=== PATIENT | male | born 1960 | race Caucasian/White ===

== ENCOUNTER 2018-04-14 16:55 | Emergency (ER) | payer SELFPAY ==
[2018-04-14] MEDS ORDERED: ONDANSETRON HCL INJ/PF 4 MG/2 ML SDV IV ONE ×2 (17:18→18:46)
[2018-04-14] MEDS ORDERED: MORPHINE SULFATE 10 MG/ML INJ IV ONE ×2 (17:18→18:46)
[2018-04-14] MEDS ORDERED: NORMAL SALINE 1000 ML 1,000 ML IV ONE (17:19)
--- NOTE | 2018-04-14 17:23 | ER Document Report ---
ED General - General Chief Complaint: Flank Pain Stated Complaint: RIGHT FLANK PAIN, VOMITING Time Seen by Provider: 04/14/18 17:14 TRAVEL OUTSIDE OF THE [place] IN LAST 30 DAYS: No - HPI Notes: Patient is a 57-year-old male that presents to the emergency department for chief complaint of right flank pain. Patient had acute onset of right flank pain 3 hours ago. It is located mostly in his back and radiates around to his right lower quadrant. There is no aggravating or relieving factor to his pain. He did take ibuprofen about 3 hours ago with no change in symptoms. He has associated nausea and vomiting. He denies any diarrhea fevers or chills. He does have a history of kidney stones in the past and states they were always on the left side and associated with dysuria. He denies any dysuria currently. Past Medical History: History of kidney stones, chronic back pain Past Surgical History: Negative Social History: Denies drugs alcohol and tobacco Family History: Reviewed and noncontributory for presenting illness Allergies: Reviewed, see documented allergy list. REVIEW OF SYSTEMS: CONSTITUTIONAL : No fever No chills No diaphoresis No recent illness EENT: No vision changes No congestion No sore throat CARDIOVASCULAR: No chest pain No palpitations RESPIRATORY: No shortness of breath No cough No difficulty breathing GASTROINTESTINAL: abdominal pain Right flank pain nausea vomiting No diarrhea GENITOURINARY: No dysuria No hematuria No difficulty urinating MUSCULOSKELETAL: No back pain No leg pain No arm pain SKIN: No rashes No lesions LYMPHATIC: No swollen, enlarged glands. NEUROLOGICAL: No lightheadedness No headache No weakness No paresthesias PSYCHIATRIC: No anxiety No depression PHYSICAL EXAMINATION: Vital signs reviewed, nursing noted reviewed. GENERAL: Well-appearing, well-nourished and in no acute distress. HEAD: Atraumatic, normocephalic. EYES: Eyes appear normal, extraocular movements intact, sclera anicteric, conjunctiva are normal. ENT: nares patent, oropharynx clear without exudates. Moist mucous membranes. NECK: Normal range of motion, supple without lymphadenopathy LUNGS: Breath sounds clear to auscultation bilaterally and equal. No wheezes rales or rhonchi. HEART: Regular rate and rhythm without murmurs ABDOMEN: Right CVA tenderness. Soft, nontender, normoactive bowel sounds. No rebound, guarding, or rigidity. No masses appreciated. EXTREMITIES: Nontender, good range of motion, no pitting or edema. NEUROLOGICAL: No focal neurological deficits. Moves all extremities spontaneously Motor and sensory grossly intact on exam. PSYCH: Normal mood, normal affect. SKIN: Warm, Dry, normal turgor, no rashes or lesions noted on exposed skin - Related Data Allergies/Adverse Reactions: No Known Allergies Allergy (Verified 04/14/18 16:56) Past Medical History - Social History Smoking Status: Never Smoker Frequency of alcohol use: None Drug Abuse: None Family History: Reviewed & Not Pertinent Patient has suicidal ideation: No Patient has homicidal ideation: No Renal/ Medical History: Reports: Hx Kidney Stones. Denies: Hx Peritoneal Dialysis - Immunizations Immunizations up to date: No Hx Diphtheria, Pertussis, Tetanus Vaccination: Yes Review of Systems - Review of Systems Notes: Dictated Physical Exam - Vital signs Vitals: Temp Pulse Resp BP Pulse Ox 97.4 F 82 16 136/93 H 100 04/14/18 17:00 04/14/18 17:00 04/14/18 17:00 04/14/18 17:00 04/14/18 17:00 - Notes Notes: Dictated Course - Re-evaluation Re-evalutation: 04/14/18 17:21 Vitals reviewed. Nursing notes reviewed. Patient given IV hydration, Zofran and morphine for symptomatic management. 04/14/18 18:46 Patient reevaluated and has had symptomatic improvement. He appears much more comfortable than during my initial evaluation. He has an 8 mm obstructing right ureterolithiasis with hydronephrosis. Patient's renal function is normal. He has no electrolyte derangements. He is tolerating oral intake. There is no superimposed urinary tract infection. Patient will be given another dose of pain medication. He will be discharged home with Flomax, Ionia , naproxen and Zofran. He will be referred to urology for follow-up. Patient will return for new or worsening symptoms. He is stable at discharge. Laboratory 04/14/18 04/14/18 04/14/18 17:26 17:26 17:50 WBC 7.7 RBC 5.07 Hgb 15.4 Hct 43.5 MCV 86 MCH 30.3 MCHC 35.3 RDW 13.2 Plt Count 217 Seg Neutrophils % 84.0 H Lymphocytes % 8.5 L Monocytes % 6.4 Eosinophils % 0.5 Basophils % 0.6 Absolute Neutrophils 6.4 Absolute Lymphocytes 0.7 Absolute Monocytes 0.5 Absolute Eosinophils 0.0 Absolute Basophils 0.0 Sodium 141.0 Potassium 4.2 Chloride 98 Carbon Dioxide 31 H Anion Gap 12 BUN 19 Creatinine 1.06 Est GFR ( Amer) > 60 Est GFR (Non-Af Amer) > 60 Glucose 124 H Calcium 9.7 Urine Color YELLOW Urine Appearance SLIGHTLY-CLOUDY Urine pH 7.0 Ur Specific Turton 1.020 Urine Protein 30 H Urine Glucose (UA) NEGATIVE Urine Ketones NEGATIVE Urine Blood LARGE H Urine Nitrite NEGATIVE Urine Bilirubin NEGATIVE Urine Urobilinogen NEGATIVE Ur Leukocyte Esterase NEGATIVE Urine WBC (Auto) 1 Urine RBC (Auto) >182 U Hyaline Cast (Auto) 3 Urine Bacteria (Auto) TRACE Urine Mucus (Auto) OCC Urine Ascorbic Acid NEGATIVE Abdomen/Pelvis CT 04/14/18 17:19 IMPRESSION: 1. Right hydronephrosis secondary to an 8 mm UPJ stone. 2. Small nonobstructing intrarenal calculi on the left. 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 Please return to the emergency department if you develop chest pain, difficulty breathing, severe abdominal pain, or ongoing vomiting. Please follow-up with your primary care physician in 2-3 days and any other recommended physicians. If prescribed, take all medications as directed. If you have any questions or concerns do not hesitate to return the emergency department for evaluation. [] Prescriptions: Hydrocodone/Acetaminophen [Ionia 5-325 mg Tablet] 1 tab PO Q6 PRN #12 tablet PRN Reason: pain Naproxen 500 mg PO BID PRN #30 tablet PRN Reason: Pain Scale Of 1 Ondansetron [Zofran Odt 4 mg Tablet] 1 tab PO Q4H PRN #15 tab.rapdis PRN Reason: For Nausea/Vomiting Tamsulosin HCl [Flomax 0.4 mg Cap.sr] 0.4 mg PO DAILY #10 cap.sr.24h Referrals: [facility] [Provider Group] - Follow up in 3-5 days
[2018-04-14 17:46] LABS: ABSOLUTE LYMPHOCYTES (AUTO) 0.7 10^3/uL (0.5-4.7); ABSOLUTE MONOCYTES (AUTO) 0.5 10^3/uL (0.1-1.4); ABSOLUTE NEUT (AUTO) 6.4 10^3/uL (1.7-8.2); BASOPHILS % (AUTO) 0.6 % (0-2); EOSINOPHILS % (AUTO) 0.5 % (0-6); HEMATOCRIT 43.5 % (37.9-51.0); HEMOGLOBIN 15.4 g/dL (13.5-17.0); LYMPHOCYTES % (AUTO) 8.5 % (13-45); MEAN CORPUSCULAR HEMOGLOBIN 30.3 pg (27.0-33.4); MEAN CORPUSCULAR HGB CONC 35.3 g/dL (32.0-36.0); MEAN CORPUSCULAR VOLUME 86 fl (80-97); MONOCYTES % (AUTO) 6.4 % (3-13); PLATELET COUNT 217 10^3/uL (150-450); RED BLOOD COUNT 5.07 10^6/uL (4.35-5.55); RED CELL DISTRIBUTION WIDTH 13.2 % (11.5-14.0); TOTAL CELLS COUNTED % (AUTO) 100 %; WHITE BLOOD COUNT 7.7 10^3/uL (4.0-10.5)
[2018-04-14 18:09] LABS: ANION GAP 12 (5-19); BLOOD UREA NITROGEN 19 mg/dL (7-20); CALCIUM 9.7 mg/dL (8.4-10.2); CARBON DIOXIDE 31 mmol/L (22-30); CHLORIDE 98 mmol/L (98-107); GLUCOSE 124 mg/dL (75-110); POTASSIUM 4.2 mmol/L (3.6-5.0)
--- NOTE | 2018-04-14 18:09 | RADIOLOGY REPORT (SQ) ---
EXAM DESCRIPTION: CT ABD/PELVIS NO ORAL OR IV COMPLETED DATE/TIME: 04/14/2018 5:41 pm REASON FOR STUDY: right flank pain COMPARISON: Renal stone CT 01/11/2011 TECHNIQUE: CT scan of the abdomen and pelvis performed without intravenous or oral contrast. Images reviewed with lung, soft tissue, and bone windows. Reconstructed coronal and sagittal MPR images revi ewed. All images stored on PACS. All CT scanners at this facility use dose modulation, iterative reconstruction, and/or weight based d osing when appropriate to reduce radiation dose to as low as reasonably achievable (ALARA). [facility]: Dose Right [facility]: CareDose [facility]: Dose Right [facility]: Teradose 4D [facility]: [employer] RADIATION DOSE: CT Rad equipment meets quality standard of care and radiation dose reduction techniq ues were employed. CTDIvol: 11.7 mGy. DLP: 652 mGy-cm.mGy. LIMITATIONS: None. FINDINGS: LOWER CHEST: No significant findings. No nodules or infiltrates. NON-CONTRASTED LIVER, SPLEEN, ADRENALS: Evaluation limited by lack of IV contrast. No identified sign ificant masses. PANCREAS: No masses. No peripancreatic inflammatory changes. GALLBLADDER: No identified stones by CT criteria. No inflammatory changes to suggest cholecystitis. RIGHT KIDNEY AND URETER: No suspicious masses. Assessment limited by lack of IV contrast. 8 mm calc ulus at the UPJ. Hydronephrosis. LEFT KIDNEY AND URETER: No suspicious masses. Assessment limited by lack of IV contrast. A couple o f nonobstructing intrarenal calculi are present. No hydronephrosis or hydroureter. AORTA AND RETROPERITONEUM: No aneurysm. No retroperitoneal masses or adenopathy. BOWEL AND PERITONEAL CAVITY: Mild diverticulosis. No acute inflammation. No obvious bowel mass. APPENDIX: Normal. PELVIS, BLADDER, AND ABDOMINAL WALL:No abnormal masses. No free fluid. Bladder normal. BONES: No significant findings. OTHER: No other significant finding. IMPRESSION: 1. Right hydronephrosis secondary to an 8 mm UPJ stone. 2. Small nonobstructing intrarenal calculi on the left. COMMENT: Quality ID # [id number]: Final reports with documentation of one or more dose reduction techniques (e.g., Automated exposure control, adjustment of the mA and/or kV according to patient size, use of iterative reconstruction technique) TECHNICAL DOCUMENTATION: JOB ID: [id number] [employer]- All Rights Reserved Reading location - IP/workstation name: [email or web address]
[2018-04-14] MEDS ORDERED: TAMSULOSIN HCL 0.4 MG CAP.SR.24H PO ONE (18:13)
[2018-04-14 18:28] LABS: APPEARANCE,URINE SLIGHTLY-CLOUDY; BILIRUBIN,URINE NEGATIVE (NEGATIVE); COLOR,URINE YELLOW; GLUCOSE, URINE NEGATIVE (NEGATIVE); KETONES,URINE NEGATIVE (NEGATIVE); LEUKOCYTE ESTERASE,URINE NEGATIVE (NEGATIVE); NITRITE,URINE NEGATIVE (NEGATIVE); PROTEIN,URINE 30 mg/dL (NEGATIVE); UROBILINOGEN,URINE NEGATIVE mg/dL (<2.0)
[2018-04-14] MEDS ORDERED: KETOROLAC TROMETHAMINE INJ/PF 30 MG/1 ML SDV IV ONE (18:46)
[2018-04-14 19:30] VITALS: BP 148/84
== END 2018-04-14 19:18 | disposition home or self-care (01) ==
LOC: ER 16:55
DX: N13.2 Hydronephrosis with renal and ureteral calculous obstruction (principal); Q62.11 Congenital occlusion of ureteropelvic junction; R11.2 Nausea with vomiting, unspecified
CPT/HCPCS: 96376; 99284; 96361; 96374; 96375; 36415; 85025; 80048; 81001; 74176; J1885; J2270; J2405; J7030

== ENCOUNTER 2019-01-29 17:28 | Emergency (ER) | payer SELFPAY ==
[2019-01-29] MEDS ORDERED: DIPH/PERTUSS(ACELL)/TETANUS VAC/PF 0.5 ML SYR (>=10YO) IM ONE (19:33)
--- NOTE | 2019-01-29 19:36 | ER Document Report ---
ED Medical Screen (RME) - General Chief Complaint: Laceration Stated Complaint: LEFT ARM INJURY Time Seen by Provider: 01/29/19 19:32 Mode of Arrival: Ambulatory Information source: Patient Notes: 58-year-old male presented to ED for complaint of laceration to the left antecubital space. He states he was hitting one hammer with another hemorrhoid get a nail out and he does not know what he cut himself on or if it was a piece of chip from the nail or the hammer. He does have a small laceration to the antecubital space. He does not know when his last tetanus was. He has been ordered a x-ray and a tetanus shot. States his only medical history of kidney stones and lithotripsies. He does not smoke drink or drugs lives with his and he is a commercial announcer. Patient is alert oriented respirations regular and unlabored speaking in full sentences. I have greeted and performed a rapid initial assessment of this patient. A comprehensive ED assessment and evaluation of the patient, analysis of test results and completion of medical decision making process will be conducted by an additional ED providers. TRAVEL OUTSIDE OF THE [place] IN LAST 30 DAYS: No - Related Data Allergies/Adverse Reactions: No Known Allergies Allergy (Verified 04/14/18 16:56) Past Medical History - Social History Frequency of alcohol use: None Drug Abuse: None Renal/ Medical History: Reports: Hx Kidney Stones. Denies: Hx Peritoneal Dialysis - Immunizations Immunizations up to date: No Hx Diphtheria, Pertussis, Tetanus Vaccination: Yes Physical Exam - Vital signs Vitals: Temp Pulse Resp BP Pulse Ox 98.6 F 117 H 18 134/98 H 93 01/29/19 17:35 01/29/19 17:35 01/29/19 17:35 01/29/19 17:35 01/29/19 17:35 Course - Vital Signs Vital signs: Temp Pulse Resp BP Pulse Ox 98.2 F 101 H 16 139/97 H 98 01/29/19 19:26 01/29/19 19:26 01/29/19 19:26 01/29/19 19:26 01/29/19 19:26
--- NOTE | 2019-01-29 21:14 | RADIOLOGY REPORT (SQ) ---
EXAM DESCRIPTION: XR ELBOW 3 VIEWS COMPLETED DATE/TME: 01/29/2019 19:33 CLINICAL HISTORY: 58 years, Male, possible foreign body laceration COMPARISON: None. NUMBER OF VIEWS: Four TECHNIQUE: Frontal, oblique, and lateral radiographs of the left elbow were obtained. LIMITATIONS: None. FINDINGS: A retained radiopaque foreign body is evident about the soft tissues along the medial aspect of the distal upper arm near the level of the medial epicondyle. Otherwise, visualized osseous structures appear normal without acute fracture or dislocation. No significant elbow joint effusion. IMPRESSION: No acute osseous anomaly. Retained radiopaque foreign body located within the soft tissues along the medial aspect of the distal upper arm near the level of the medial epicondyle. copyright 2010 [employer]- All Rights Reserved
--- NOTE | 2019-01-30 00:02 | ER Document Report ---
ED Wound - General Chief Complaint: Laceration Stated Complaint: LEFT ARM INJURY Time Seen by Provider: 01/29/19 19:32 Mode of Arrival: Ambulatory TRAVEL OUTSIDE OF THE [place] IN LAST 30 DAYS: No - Related Data Allergies/Adverse Reactions: No Known Allergies Allergy (Verified 04/14/18 16:56) Past Medical History - General Information source: Patient - Social History Smoking Status: Never Smoker Frequency of alcohol use: None Drug Abuse: None Family History: Reviewed & Not Pertinent Patient has suicidal ideation: No Patient has homicidal ideation: No Renal/ Medical History: Reports: Hx Kidney Stones. Denies: Hx Peritoneal Dialysis - Immunizations Immunizations up to date: No Hx Diphtheria, Pertussis, Tetanus Vaccination: Yes Physical Exam - Vital signs Vitals: Temp Pulse Resp BP Pulse Ox 98.6 F 117 H 18 134/98 H 93 01/29/19 17:35 01/29/19 17:35 01/29/19 17:35 01/29/19 17:35 01/29/19 17:35 Course - Vital Signs Vital signs: Temp Pulse Resp BP Pulse Ox 98.2 F 101 H 16 139/97 H 98 01/29/19 19:26 01/29/19 19:26 01/29/19 19:26 01/29/19 19:26 01/29/19 19:26 Discharge - Discharge Clinical Impression: Laceration of left elbow with foreign body Qualifiers: Encounter type: initial encounter Qualified Code(s): S51.022A - Laceration with foreign body of left elbow, initial encounter Condition: Good Disposition: HOME, SELF-CARE Instructions: Laceration Care ([facility]), Tetanus Immunization Given ([facility]) Additional Instructions: Follow-up with PCP in 1 to 2 days. Return for any worsening symptoms. tylenol as needed for any pain or fever if not allergic. take the medication as prescribed. Cool compresses to the area. Monitor for any signs of infection as discussed. Prescriptions: Ciprofloxacin HCl [Cipro 500 mg Tablet] 500 mg PO BID #14 tablet
[2019-01-30] MEDS ORDERED: LIDOCAINE 1% INJ-PF (10 MG/ML) 30 ML SDV ONE (00:39)
[2019-01-30 01:42] VITALS: BP 116/88
== END 2019-01-30 01:42 | disposition home or self-care (01) ==
LOC: ER 17:28
DX: S51.022A Laceration with foreign body of left elbow, initial encounter (principal); W45.8XXA Other foreign body or object entering through skin, initial encounter; Y93.89 Activity, other specified
CPT/HCPCS: 90471; 90715; 99283

== ENCOUNTER 2020-04-01 21:55 | Observation (INO) | payer OTHER ==
[2020-04-01 22:36] LABS: ABSOLUTE BASOPHILS # (AUTO) 0.1 10^3/uL (0.0-0.2); ABSOLUTE EOSINOPHILS # (AUTO) 0.2 10^3/uL (0.0-0.6); ABSOLUTE LYMPHOCYTES (AUTO) 1.5 10^3/uL (0.5-4.7); ABSOLUTE MONOCYTES (AUTO) 0.8 10^3/uL (0.1-1.4); ABSOLUTE NEUT (AUTO) 4.5 10^3/uL (1.7-8.2); BASOPHILS % (AUTO) 1.5 % (0-2); EOSINOPHILS % (AUTO) 2.7 % (0-6); HEMATOCRIT 46.4 % (37.9-51.0); HEMOGLOBIN 16.3 g/dL (13.5-17.0); LYMPHOCYTES % (AUTO) 20.9 % (13-45); MEAN CORPUSCULAR HEMOGLOBIN 30.3 pg (27.0-33.4); MEAN CORPUSCULAR HGB CONC 35.2 g/dL (32.0-36.0); MEAN CORPUSCULAR VOLUME 86 fl (80-97); MONOCYTES % (AUTO) 11.7 % (3-13); PLATELET COUNT 196 10^3/uL (150-450); RED BLOOD COUNT 5.38 10^6/uL (4.35-5.55); RED CELL DISTRIBUTION WIDTH 13.8 % (11.5-14.0); SEGMENTED NEUTROPHILS % (AUTO) 63.2 % (42-78); TOTAL CELLS COUNTED % (AUTO) 100 %; WHITE BLOOD COUNT 7.1 10^3/uL (4.0-10.5)
[2020-04-01 22:43] LABS: PARTIAL THROMBOPLASTIN TIME 34.6 SEC (23.5-35.8)
[2020-04-01 22:49] LABS: INTERNATIONAL RATION (INR) 0.93; PROTHROMBIN TIME 12.7 SEC (11.4-15.4)
--- NOTE | 2020-04-01 22:56 | RADIOLOGY REPORT (SQ) ---
EXAM DESCRIPTION: XR CHEST 1 VIEW COMPLETED DATE/TME: 04/01/2020 00:00 CLINICAL HISTORY: 59 years, Male, stroke symptoms COMPARISON: None. NUMBER OF VIEWS: TECHNIQUE: LIMITATIONS: None. FINDINGS: No evidence of pulmonary infiltrate or pleural effusion. The heart and mediastinum are unremarkable. Pulmonary vascularity appears normal. There is tortuosity of the thoracic aorta. IMPRESSION: No acute finding. copyright 2010 [employer]- All Rights Reserved
--- NOTE | 2020-04-01 22:56 | RADIOLOGY REPORT (SQ) ---
CT of the head: 04/01/2020 9:53 PM HR OPERATIONS ADVISOR HISTORY: 59-year-old patient with stroke like symptoms. COMPARISON: None available TECHNIQUE: Multiple axial contiguous images were obtained through the head without intravenous contrast administered. This exam was performed according to our departmental dose-optimization program, which includes automated exposure control, adjustment of the mA and/or KV according to the patient's size and/or use of iterative reconstruction technique. FINDINGS: The ventricles are within normal limits for size. Both orbits appear unremarkable. The mastoid air cells appear clear. The visualized paranasal sinuses appear clear. The calvarium is intact. No extra-axial fluid collection is seen. The lopez-white matter differentiation is within normal limits. No midline shift or mass effect is apparent. There are no findings to suggest acute intracranial hemorrhage. IMPRESSION: No acute intracranial hemorrhage is seen. If there is persistent clinical concern for a neurologic deficit, consider MRI brain with diffusion-weighted sequences for further evaluation.
[2020-04-01 23:07] LABS: CREATINE KINASE MB 2.88 ng/mL (<4.55); TROPONIN I < 0.012 ng/mL
--- NOTE | 2020-04-02 00:04 | ER Document Report ---
Entered by GREGORIA REEVES SCRIBE 04/01/20 [id number] Acting as scribe for:HERIBERTO BELL DO ED Neuro Symptoms/Deficit - General Chief Complaint: S/S of Possible Stroke Stated Complaint: NUMBNESS IN LIPS/HARD TO SWALLOW/EYE DROOPING Time Seen by Provider: 04/01/20 22:33 Primary Care Provider: WINSTON CLEVELAND PA-C [Primary Care Provider] - Follow up as needed Mode of Arrival: Ambulatory Information source: Patient Notes: This 59 year old male patient presents to the emergency department today with complaints of difficulty trying to eat a sub this afternoon. Patient reports that he felt numbness in and around both sides of his mouth with what felt like a "painful spasm". He also mentions he has felt like he was "in a fog" the last few days with a headache that would come and go. Patient mentions his vision has been "off" today as well. TRAVEL OUTSIDE OF THE [place] IN LAST 30 DAYS: No - Related Data Allergies/Adverse Reactions: No Known Allergies Allergy (Verified 04/14/18 16:56) Past Medical History - General Information source: Patient - Social History Smoking Status: Former Smoker Cigarette use (# per day): No Frequency of alcohol use: None Drug Abuse: None Occupation: commercial property administrator Lives with: Family Family History: Reviewed & Not Pertinent Patient has homicidal ideation: No Renal/ Medical History: Reports: Hx Kidney Stones Surgical Hx: Negative - Immunizations Immunizations up to date: No Hx Diphtheria, Pertussis, Tetanus Vaccination: Yes Review of Systems - Review of Systems Constitutional: No symptoms reported EENT: See HPI, Blurred vision Cardiovascular: No symptoms reported Respiratory: No symptoms reported Gastrointestinal: No symptoms reported Genitourinary: No symptoms reported Male Genitourinary: No symptoms reported Musculoskeletal: No symptoms reported Skin: No symptoms reported Hematologic/Lymphatic: No symptoms reported Neurological/Psychological: See HPI, Headaches, Other - numbness in and around mouth, right eye droopy -: Yes All other systems reviewed and negative Physical Exam - Vital signs Vitals: Temp Pulse Resp BP Pulse Ox 97.6 F 85 17 178/98 H 99 04/01/20 22:16 04/01/20 22:16 04/01/20 22:16 04/01/20 22:16 11/08/20 22:16 - Notes Notes: Physical Exam: General: Alert, appears well. HEENT: Normocephalic. Atraumatic. PERRL. Extraocular movements intact. Oropharynx clear. Neck: Supple. Non-tender. Respiratory: No respiratory distress. Clear and equal breath sounds bilaterally. Cardiovascular: Regular rate and rhythm. Abdominal: Obese. Non-tender. No distension. Normal Bowel Sounds. Back: No gross abnormalities. Extremities: Moves all four extremities. Upper extremities: Normal inspection. Normal ROM. Lower extremities: Normal inspection. No edema. Normal ROM. Normal maintenance supervisor electrical strength. Neurological: Right sided facial droop. Normal cognition. AAOx4. Normal speech. Psychological: Normal affect. Normal Mood. Skin: Warm. Dry. Normal color. Course - Re-evaluation Re-evalutation: 04/02/20 01:14 MDM 59 year old male is here with with feeling "foggy" for about 2 days and a bit of a headache. No fever or chills. Left handed gentleman has facial periorbital parathesia since 1429 and right sided facial droop mildly. Speech is normal. Difficult to discern furrow in forhead when he attempts to wrinkle forehead. Ambulates without difficuty and no drift here but he additionally has difficutly with heel to phillips using right leg. While some aspects appear as Sundown Palsy it is difficult, in my opinion, to exclude cva clinically. He has some risk. The symptom onset was about 9 hours prior to arrival and for that reason he is not under consideration for TPA. His head ct is reviewed. Treated with aspirin here and I have discussed the pt with Dr. Canales and he has graciously agreed to see and evaluate for admission. Given aspirin here. - Vital Signs Vital signs: Temp Pulse Resp BP Pulse Ox 97.6 F 87 18 147/89 H 96 04/01/20 22:16 04/02/20 00:00 04/02/20 00:00 04/02/20 00:00 04/02/20 00:00 - Laboratory Result Diagrams: 04/01/20 22:21 04/01/20 23:30 Laboratory results interpreted by me: 04/01/20 23:30 Creatine Kinase 402 H - Diagnostic Test Radiology reviewed: Image reviewed, Reports reviewed - EKG Interpretation by Me EKG shows normal: Sinus rhythm Rate: Normal Rhythm: NSR - NSR Nl axis [address] elevation or depression my interpretation. Discharge - Discharge Clinical Impression: Facial paresthesia, Mouth droop due to facial weakness Hypertension Qualifiers: Hypertension type: unspecified Qualified Code(s): I10 - Essential (primary) hypertension Condition: Stable Disposition: ADMITTED OBSERVATION Admitting Provider: Dr. Real Unit Admitted: Telemetry Referrals: WINSTON CLEVELAND PA-C [Primary Care Provider] - Follow up as needed I personally performed the services described in the documentation, reviewed and edited the documentation which was dictated to the scribe in my presence, and it accurately records my words and actions.
[2020-04-02] MEDS ORDERED: ASPIRIN 325 MG TABLET, ENT COATED PO ONE (00:07)
[2020-04-02 00:42] LABS: ALBUMIN 4.2 g/dL (3.5-5.0); ALKALINE PHOSPHATASE 79 U/L (38-126); ANION GAP 11 (5-19); ASPARTATE AMINO TRANSFERASE 34 U/L (17-59); BILIRUBIN,DIRECT 0.1 mg/dL (0.0-0.4); BILIRUBIN,TOTAL 0.4 mg/dL (0.2-1.3); BLOOD UREA NITROGEN 19 mg/dL (7-20); CALCIUM 9.1 mg/dL (8.4-10.2); CARBON DIOXIDE 25 mmol/L (22-30); CHLORIDE 101 mmol/L (98-107); CREATINE KINASE 402 U/L (55-170); GLUCOSE 105 mg/dL (75-110); POTASSIUM 4.3 mmol/L (3.6-5.0); TOTAL PROTEIN 6.9 g/dL (6.3-8.2)
[2020-04-02] MEDS ORDERED: NORMAL SALINE 1000 ML 1,000 ML IV PRN (01:38)
[2020-04-02] MEDS ORDERED: ACETAMINOPHEN 325 MG TABLET PO PRN (01:38)
--- NOTE | 2020-04-02 01:51 | PDOC H&P ---
History of Present Illness Admission Date/PCP: 04/02/20 01:32 WINSTON CLEVELAND PA-C Patient complains of: Right-sided facial droop History of Present Illness: AVEL DAILY is a 59 year old male with a history of hypertension who presents to the ED 9 hours after he developed right-sided facial droop. He states that he initially noticed the droop while he was trying to eat around 1 PM in the afternoon at which time he noticed he was having drooling of his mouth on the right side and he was also having numbness around his mouth. His reports that he has been wobbling when he moves around but has been walking without any difficulty. He also reports that he has blurring of vision on both sides. He denies weakness in any other part of his body, or numbness and tingling in his extremities. He has not lost control of his bowel or bladder. He denies any recent symptoms of possible viral infection. He also denies any palpitation, chest pain, shortness of breath, dizziness, leg swelling. No history of loss of consciousness or abnormal body movement. Has no dysphagia or dysarthria. No difficulty swallowing Social History Information Source: Patient Lives with: Family Smoking Status: Former Smoker Hx Recreational Drug Use: No Drugs: None - Advance Directive Resuscitation Status: Full Code Family History Family History: Reviewed & Not Pertinent Parental Family History Reviewed: Yes Children Family History Reviewed: Yes Sibling(s) Family History Reviewed.: Yes Medication/Allergy Allergies/Adverse Reactions: No Known Allergies Allergy (Verified 04/14/18 16:56) Review of Systems Constitutional: ABSENT: chills, fever(s), headache(s), weight gain, weight loss Eyes: PRESENT: as per HPI Ears: ABSENT: hearing changes Nose, Mouth, and Throat: ABSENT: as per HPI, headache(s), mouth pain, sore throat, vertigo, other Cardiovascular: ABSENT: chest pain, dyspnea on exertion, edema, orthropnea, palpitations Respiratory: ABSENT: cough, hemoptysis Gastrointestinal: ABSENT: abdominal pain, constipation, diarrhea, hematemesis, hematochezia, nausea, vomiting Genitourinary: ABSENT: dysuria, hematuria Musculoskeletal: ABSENT: joint swelling Integumentary: ABSENT: rash, wounds Neurological: PRESENT: as per HPI Psychiatric: ABSENT: anxiety, depression, homidical ideation, suicidal ideation Endocrine: ABSENT: cold intolerance, heat intolerance, polydipsia, polyuria Hematologic/Lymphatic: ABSENT: easy bleeding, easy bruising Physical Exam Vital Signs: Temp Pulse Resp BP Pulse Ox 97.6 F 87 18 147/89 H 96 04/01/20 22:16 04/02/20 00:00 04/02/20 00:00 04/02/20 00:00 04/02/20 00:00 Intake & Output 03/31/20 04/01/20 04/02/20 06:59 06:59 06:59 Weight 102.5 kg Additional comments: GENERAL APPEARANCE: Alert and oriented x3, no acute distress HEENT: Normocephalic and atraumatic. No scleral icterus. Moist oral mucosa NECK: Supple. No lymphadenopathy or tenderness. No carotid bruit. No JVD CHEST: Symmetric. Nontender to palpation. LUNGS: Clear with good air entry bilaterally HEART: Regular rate and rhythm with normal S1 and S2. No murmurs, gallops, or rubs. ABDOMEN: Flat, soft, active bowel sounds, no direct or rebound tenderness. No organomegaly detected. No CVA tenderness EXTREMITIES: No cyanosis, clubbing, or edema. MUSCULOSKELETAL: No deformity, atrophy or swelling noted PSYCHIATRIC: Recent and remote memory is intact. Appropriate mood and affect. SKIN: Warm, dry, and well perfused. No lesions or rashes are noted. NEUROLOGIC: Cranial nerves II through and VIII through XII are intact Cranial nerve VII: Has weakness on right sided muscles of facial expression both in the upper one third and lower third with drooling from the right side of his mouth, and unable to lift his eyebrows on the right side Sensation: Normal sensation in both upper and lower extremities to touch Motor: 5/5 in both upper and lower extremities bilaterally Normal muscle tone, no clonus Reflexes: Biceps, triceps, knee and ankle reflexes 2/4 Results Laboratory Results: 04/01/20 22:21 04/01/20 23:30 04/01/20 04/01/20 04/01/20 22:21 22:21 23:30 WBC 7.1 RBC 5.38 Hgb 16.3 Hct 46.4 MCV 86 MCH 30.3 MCHC 35.2 RDW 13.8 Plt Count 196 Seg Neutrophils % 63.2 Sodium Cancelled 137.1 Potassium Cancelled 4.3 Chloride Cancelled 101 Carbon Dioxide Cancelled 25 Anion Gap Cancelled 11 BUN Cancelled 19 Creatinine Cancelled 0.95 Est GFR ( Amer) Cancelled > 60 Est GFR (Non-Af Amer) Cancelled Glucose Cancelled 105 Calcium Cancelled 9.1 Total Bilirubin Cancelled 0.4 AST Cancelled 34 Alkaline Phosphatase Cancelled 79 Total Protein Cancelled 6.9 Albumin Cancelled 4.2 04/01/20 04/01/20 04/01/20 22:21 22:21 23:30 Creatine Kinase Cancelled 402 H CK-MB (CK-2) 2.88 Troponin I < 0.012 Impressions: Chest X-Ray 04/01/20 00:00 IMPRESSION: No acute finding. copyright 2011 [employer]- All Rights Reserved Head CT 04/01/20 00:00 IMPRESSION: No acute intracranial hemorrhage is seen. If there is persistent clinical concern for a neurologic deficit, consider MRI brain with diffusion-weighted sequences for further evaluation. Assessment and Plan - Diagnosis (1) Mouth droop due to facial weakness Is this a current diagnosis for this admission?: Yes Plan: Patient presents with right-sided facial weakness Symptoms concerning for CVA vs Galdamez's palsy Physical examination significant for isolated facial nerve palsy with relatively preserved other motor and sensory functions Has NIH stroke score of 3 CT head without contrast was negative for intracranial bleeding In normal sinus rhythm, troponin negative We will hold antihypertensive to permit permissive hypertension Continue IV normal saline at 75 mL/h Started on aspirin and atorvastatin Neuro check, fall precaution and aspiration precaution We will keep him n.p.o. until swallow evaluation Speech evaluation MRI, carotid Doppler and echocardiogram in the morning (2) Hypertension Qualifiers: Hypertension type: unspecified Is this a current diagnosis for this admission?: Yes Plan: Hold antihypertensive medication for now On low-sodium diet Monitor vitals closely (3) Obesity (BMI 30.0-34.9) Is this a current diagnosis for this admission?: Yes Plan: Encouraged lifestyle modification including dietary change and exercise - Time Time Spent with patient: 35 or more minutes Total Critical Time (Minutes): 45 Medications reviewed and adjusted accordingly: Yes Anticipated Discharge Disposition: Home, Self Care Anticipated Discharge Timeframe: within 48 hours - Inpatient Certification Based on my medical assessment, after consideration of the patient's comorbidities, presenting symptoms, or acuity I expect that the services needed warrant INPATIENT care.: Yes I certify that my determination is in accordance with my understanding of Medicare's requirements for reasonable and necessary INPATIENT services [42 CFR 412.3e].: Yes Medical Necessity: Need Close Monitoring Due to Risk of Patient Decompensation, Need For Continuous Telemetry Monitoring, Risk of Complication if Not Cared For in Hospital Post Hospital Care: D/C or Transfer Summary
--- NOTE | 2020-04-02 05:29 | EKG REPORT ---
SEVERITY:- NORMAL ECG - SINUS RHYTHM : Confirmed by: Tres Telles MD 02-Apr-2020 05:29:05
[2020-04-02 06:48] LABS: APPEARANCE,URINE CLEAR; BILIRUBIN,URINE NEGATIVE (NEGATIVE); COLOR,URINE STRAW; GLUCOSE, URINE NEGATIVE (NEGATIVE); KETONES,URINE NEGATIVE (NEGATIVE); PROTEIN,URINE NEGATIVE (NEGATIVE); URINE SPECIFIC GRAVITY 1.009; UROBILINOGEN,URINE NEGATIVE mg/dL (<2.0)
[2020-04-02 07:02] LABS: CHOLESTEROL 175.82 mg/dL (0-200); TRIGLYCERIDES 133 mg/dL (<150)
[2020-04-02 07:12] LABS: DIRECT LDL 133 mg/dL (<100)
[2020-04-02] MEDS ORDERED: ENOXAPARIN SODIUM INJ 40 MG/0.4 ML DISP.SYRIN SUBCUT SCH (10:00)
[2020-04-02] MEDS ORDERED: FAMOTIDINE 20 MG TABLET PO SCH (10:00)
[2020-04-02] MEDS ORDERED: ASPIRIN 81 MG TABLET, ENT COATED PO SCH (10:00)
[2020-04-02 12:22] VITALS: BP 143/91
[2020-04-02] MEDS ORDERED: PREDNISONE 20 MG TABLET PO ONE (14:35)
[2020-04-02] MEDS ORDERED: ACETAMINOPHEN 325 MG TABLET PO SCH (15:00)
--- NOTE | 2020-04-02 15:08 | RADIOLOGY REPORT (SQ) ---
EXAM DESCRIPTION: CTA HEAD IMAGES COMPLETED DATE/TIME: 04/02/2020 2:51 pm REASON FOR STUDY: headache with facial weakness COMPARISON: Head CT 04/01/2020. TECHNIQUE: Post IV contrast scanning, thin section axial imaging through the brain to evaluate the a rterial structures. Source and MIP images are saved and reviewed on PACS. Advanced 3D imaging as volume-rendering, MIPs, SSD performed? yes All CT scanners at this facility use dose modulation, iterative reconstruction, and/or weight based d osing when appropriate to reduce radiation dose to as low as reasonably achievable (ALARA). [facility]: Dose Right [facility]: CareDose [facility]: Dose Right [facility]: Teradose 4D [facility]: Zero2IPO CONTRAST TYPE AND DOSE: contrast/concentration: Isovue 350.00 mmol/ml; Total Contrast Delivered: 67. 0 ml; Total Saline Delivered: 75.0 ml RENAL FUNCTION: GFR > 60. LIMITATIONS: None. FINDINGS: [place]: The anterior, middle, posterior cerebral arteries are all patent. No ev idence of aneurysm or focal stenosis. POSTERIOR CIRCULATION: The distal vertebral arteries are patent as is the basilar artery. No aneurysm . BRAIN: No abnormal enhancement. BONES: Intact as visualized. SINUSES: No fluid or mucosal thickening. OTHER: No other significant finding. IMPRESSION: NO CTA EVIDENCE OF STENOSIS OR ANEURYSM OF THE [place]. TECHNICAL DOCUMENTATION: JOB ID: [id number] Quality ID # [id number]: Final reports with documentation of one or more dose reduction techniques (e.g., Au tomated exposure control, adjustment of the mA and/or kV according to patient size, use of iterative reconstruction technique) 2010 [employer]- All Rights Reserved Reading location - IP/workstation name: [email or web address]
[2020-04-02] MEDS ORDERED: VALACYCLOVIR HCL 500 MG TABLET PO SCH (15:30)
[2020-04-02] MEDS ORDERED: SODIUM CHLORIDE 5% OU SCH (18:00)
--- NOTE | 2020-04-02 19:47 | PDOC DISCHARGE SUMMARY ---
Impression - Admit/DC Date/PCP Admission Date/Primary Care Provider: 04/02/20 01:32 WINSTON CLEVELAND PA-C Discharge Date: 04/02/20 - Discharge Diagnosis (1) Right-sided Galdamez's palsy Is this a current diagnosis for this admission?: Yes (3) Hypertension Is this a current diagnosis for this admission?: Yes (4) Mouth droop due to facial weakness Is this a current diagnosis for this admission?: Yes (5) Obesity (BMI 30.0-34.9) Is this a current diagnosis for this admission?: Yes - Additional Information Resuscitation Status: Full Code Discharge Diet: Cardiac Discharge Activity: Activity As Tolerated Referrals: WINSTON CLEVELAND PA-C [Primary Care Provider] - 04/10/20 10:30 am Prescriptions: Prednisone [Deltasone 20 mg Tablet] 60 mg PO DAILY #21 tablet Aspirin [Ecotrin 81 mg EC Tablet] 81 mg PO DAILY #30 Atorvastatin Calcium [Lipitor 20 mg Tablet] 20 mg PO QHS #30 tablet Sodium Chloride [Alfredo-128 Oph Oint 5% 3.5 gm] 1 applic OU Q2 #5 tube Valacyclovir HCl [Valtrex 500 mg Tablet] 1,000 mg PO TID #21 tablet Home Medications: Ascorbic Acid [Vitamin C 500 mg Tablet] 500 mg PO DAILY 04/02/20 Aspirin [Ecotrin 81 mg EC Tablet] 81 mg PO DAILY #30 04/02/20 Atorvastatin Calcium [Lipitor 20 mg Tablet] 20 mg PO QHS #30 tablet 04/02/20 Cyanocobalamin (Vitamin B-12) [Vitamin B-12 1000 mcg Tablet] 1,000 mcg PO Q2D 04/02/20 Garlic [Odor Free Garlic] 1 each PO DAILY 04/02/20 Multivitamin [Tab-A-Katalina (Multiple Vitamin) Tablet] 1 tab PO Q2D 04/02/20 [place]-3/Dha/Epa/Fish Oil [Fish Oil 1,000 mg Softgel] 1,000 mg PO Q2D 04/02/20 Prednisone [Deltasone 20 mg Tablet] 60 mg PO DAILY #21 tablet 04/02/20 Sodium Chloride [Alfredo-128 Oph Oint 5% 3.5 gm] 1 applic OU Q2 #5 tube 04/02/20 Valacyclovir HCl [Valtrex 500 mg Tablet] 1,000 mg PO TID #21 tablet 04/02/20 History of Present Illiness History of Present Illness: As per admitting HPI 04/02/2020 "AVEL DAILY is a 59 year old male with a history of hypertension who presents to the ED 9 hours after he developed right- sided facial droop. He states that he initially noticed the droop while he was trying to eat around 1 PM in the afternoon at which time he noticed he was having drooling of his mouth on the right side and he was also having numbness around his mouth. His reports that he has been wobbling when he moves around but has been walking without any difficulty. He also reports that he has blurring of vision on both sides. He denies weakness in any other part of his body, or numbness and tingling in his extremities. He has not lost control of his bowel or bladder. He denies any recent symptoms of possible viral infection. He also denies any palpitation, chest pain, shortness of breath, dizziness, leg swelling. No history of loss of consciousness or abnormal body movement. Has no dysphagia or dysarthria. No difficulty swallowing" Hospital Course Hospital Course: (1) Right sided Galdamez's Palsy / Mouth droop due to facial weakness / Right sided facial weakness Physical examination significant for isolated facial nerve palsy with relatively preserved other motor and sensory functions CT head without contrast was negative for intracranial bleeding Physical therapy and speech therapy evaluated patient per stroke protocol without deficits noted. Discussed case with neurology from [facility]. Treatment plan includes: aggressive eye therapy, Prednisone 60mg x1 week, Valacyclovir TID x1 week. Started on aspirin and atorvastatin F/u with PCP in one week. May f/u at [facility] neuro clinic in 2-3 weeks if desires. Physical Exam Vital Signs: Temp Pulse Resp BP Pulse Ox 98.2 F 70 18 143/91 H 99 04/02/20 16:13 04/02/20 16:13 04/02/20 16:13 04/02/20 12:16 04/02/20 16:13 Intake & Output 04/01/20 04/02/20 04/03/20 06:59 06:59 06:59 Weight 102.8 kg General appearance: PRESENT: no acute distress, cooperative, obese Head exam: PRESENT: atraumatic, normocephalic Eye exam: ABSENT: scleral icterus Mouth exam: PRESENT: moist, tongue midline Neck exam: PRESENT: full ROM. ABSENT: JVD, tenderness Respiratory exam: PRESENT: clear to auscultation tasha, symmetrical, unlabored. ABSENT: tachypnea Cardiovascular exam: PRESENT: RRR, +S1, +S2. ABSENT: diastolic murmur, systolic murmur Pulses: PRESENT: normal radial pulses GI/Abdominal exam: PRESENT: normal bowel sounds, soft. ABSENT: distended, firm, tenderness Extremities exam: PRESENT: full ROM. ABSENT: tenderness Musculoskeletal exam: PRESENT: ambulatory, full ROM. ABSENT: deformity, dislocation Neurological exam: PRESENT: alert, awake, oriented to person, oriented to place, oriented to time, CN II-XII grossly intact, other - Weakness on the right side muscles of facial expression within the upper one third and lower one third with drooling from the right side of the mouth. He is able to lift his eyebrow on the right side of his face. Right eyelid with drooping. Is unable to close the right eyelid. Psychiatric exam: PRESENT: appropriate affect, normal mood Skin exam: PRESENT: dry, intact, warm Results Laboratory Results: WBC 7.1 10^3/uL (4.0-10.5) 04/01/20 22: RBC 5.38 10^6/uL (4.35-5.55) 04/01/20 22:21 Hgb 16.3 g/dL (13.5-17.0) 04/01/20 22:21 Hct 46.4 % (37.9-51.0) 04/01/20 22:21 MCV 86 fl (80-97) 04/01/20 22:21 MCH 30.3 pg (27.0-33.4) 04/01/20 22:21 MCHC 35.2 g/dL (32.0-36.0) 04/01/20 22:21 RDW 13.8 % (11.5-14.0) 04/01/20 22:21 Plt Count 196 10^3/uL (150-450) 04/01/20 22:21 Lymph % (Auto) 20.9 % (13-45) 04/01/20 22:21 Kerr % (Auto) 11.7 % (3-13) 04/01/20 22:21 Eos % (Auto) 2.7 % (0-6) 04/01/20 22: Baso % (Auto) 1.5 % (0-2) 04/01/20 22: Absolute Neuts (auto) 4.5 10^3/uL (1.7-8.2) 04/01/20 22: Absolute Lymphs (auto) 1.5 10^3/uL (0.5-4.7) 04/01/20 22:21 Absolute Monos (auto) 0.8 10^3/uL (0.1-1.4) 04/01/20 22:21 Absolute Eos (auto) 0.2 10^3/uL (0.0-0.6) 04/01/20 22: Absolute Basos (auto) 0.1 10^3/uL (0.0-0.2) 04/01/20 22: Seg Neutrophils % 63.2 % (42-78) 04/01/20 22: PT 12.7 SEC (11.4-15.4) 04/01/20 22: INR 0.93 04/01/20 22:21 APTT 34.6 SEC (23.5-35.8) 04/01/20 22:21 Sodium 137.1 mmol/L (137-145) 04/01/20 23:30 Potassium 4.3 mmol/L (3.6-5.0) 04/01/20 23:30 Chloride 101 mmol/L (98-107) 04/01/20 23:30 Carbon Dioxide 25 mmol/L (22-30) 04/01/20 23:30 Anion Gap 11 (5-19) 04/01/20 23:30 BUN 19 mg/dL (7-20) 04/01/20 23:30 Creatinine 0.95 mg/dL (0.52-1.25) 04/01/20 23:30 Est GFR ( Amer) > 60 (>60) 04/01/20 23:30 Est GFR (Non-Af Amer) Cancelled 04/01/20 22:21 Est GFR (MDRD) Non-Af > 60 (>60) 04/01/20 23:30 Glucose 105 mg/dL (75-110) 04/01/20 23:30 POC Glucose 106 mg/dL (70-110) 04/01/20 22:19 Hemoglobin A1c % 4.6 % (4.7-6.0) L 04/02/20 05:04 Calcium 9.1 mg/dL (8.4-10.2) 04/01/20 23:30 Total Bilirubin 0.4 mg/dL (0.2-1.3) 04/01/20 23:30 Direct Bilirubin 0.1 mg/dL (0.0-0.4) 04/01/20 23:30 Neonat Total Bilirubin Not Reportable 04/01/20 23:30 Neonat Direct Bilirubin Not Reportable 04/01/20 23:30 Neonat Indirect Bili Not Reportable 04/01/20 23:30 AST 34 U/L (17-59) 04/01/20 23:30 ALT 37 U/L (<50) 04/01/20 23:30 Alkaline Phosphatase 79 U/L (38-126) 04/01/20 23:30 Creatine Kinase 402 U/L (55-170) H 04/01/20 23:30 CK-MB (CK-2) 2.88 ng/mL (<4.55) 04/01/20 22:21 Troponin I < 0.012 ng/mL 04/01/20 22:21 Total Protein 6.9 g/dL (6.3-8.2) 04/01/20 23:30 Albumin 4.2 g/dL (3.5-5.0) 04/01/20 23:30 Triglycerides 133 mg/dL (<150) 04/02/20 05:04 Cholesterol 175.82 mg/dL (0-200) 04/02/20 05:04 LDL Cholesterol Direct 133 mg/dL (<100) H 04/02/20 05:04 VLDL Cholesterol 27.0 mg/dL (10-31) 04/02/20 05:04 HDL Cholesterol 33 mg/dL (>40) L 04/02/20 05:04 EGFR Cancelled 04/01/20 22:21 Urine Color STRAW 04/02/20 03:10 Urine Appearance CLEAR 04/02/20 03:10 Urine pH 6.0 (5.0-9.0) 04/02/20 03:10 Ur Specific [place] 1.009 04/02/20 03:10 Urine Protein NEGATIVE mg/dL (NEGATIVE) 04/02/20 03:10 Urine Glucose (UA) NEGATIVE mg/dL (NEGATIVE) 04/02/20 03:10 Urine Ketones NEGATIVE mg/dL (NEGATIVE) 04/02/20 03:10 Urine Blood NEGATIVE (NEGATIVE) 04/02/20 03:10 Urine Nitrite (Reflex) NEGATIVE (NEGATIVE) 04/02/20 03:10 Urine Bilirubin NEGATIVE (NEGATIVE) 04/02/20 03:10 Urine Urobilinogen NEGATIVE mg/dL (<2.0) 04/02/20 03:10 Leukocyte Esterase Rfl NEGATIVE (NEGATIVE) 04/02/20 03:10 Urine RBC (Auto) 0 /HPF 04/02/20 03:10 Urine WBC (Reflex) < 1 /HPF 04/02/20 03:10 Urine Ascorbic Acid NEGATIVE (NEGATIVE) 04/02/20 03:10 04/01/20 22:21 CK-MB (CK-2) 2.88 Troponin I < 0.012 Impressions: Chest X-Ray 04/01/20 00:00 IMPRESSION: No acute finding. copyright 2011 [employer]- All Rights Reserved Head CT 04/01/20 00:00 IMPRESSION: No acute intracranial hemorrhage is seen. If there is persistent clinical concern for a neurologic deficit, consider MRI brain with diffusion-weighted sequences for further evaluation. Head CTA 04/02/20 00:00 IMPRESSION: NO CTA EVIDENCE OF STENOSIS OR ANEURYSM OF THE [place]. Plan Plan of Treatment: 1) Aggressive eye care: since your right eye can not close on its own, it gets dried out. You will need to start putting in moisturizing eye drops ("artificial tears") every 1-2 hours while awake. When you want to sleep at night, put the thicker, gel-like artificial tears ointment into your right eye, and then tape your right eye closed for the night so that it doesn't get dried out while you are asleep. Please follow up with an eye doctor within the next 1-2 weeks to have your eyes looked at. 2) Steroid: you will take Prednisone 60 mg once daily with breakfast for 1 week. 3) Anti-viral medication: you will take Valacyclovir three times daily for 1 week. Galdamez's Palsy can go away with the above treatment, but it may not go away completely. Please follow up with your primary care doctor and a neurologist in 1-2 weeks for ongoing management. Take this paperwork with you so that they know what diagnosis you have and what medications you have been taking. Otherwise, for headaches, take Tylenol as needed. Please start taking a daily baby aspirin. You were also started on a new cholesterol medication called "Atorvastatin." Time Spent: Greater than 30 Minutes Stroke Is this a Stroke Patient?: No Acute Heart Failure Is this a Heart Failure Patient?: No
[2020-04-02] MEDS ORDERED: ATORVASTATIN CALCIUM 40 MG TABLET PO SCH (22:00)
[2020-04-03] MEDS ORDERED: INFLUENZA QUAD (6MOS+) 2020-21 VAC 0.5 ML SYR IM ONE (08:00)
[2020-04-03] MEDS ORDERED: PREDNISONE 20 MG TABLET PO SCH (10:00)
== END 2020-04-02 17:01 | disposition home or self-care (01) ==
LOC: ER 21:55 → EH 04-02 01:32 → 3W 04-02 03:33
PROVIDERS: ADMIT Student in an Organized Health Care Education/Training Program; ATTEND Physician Assistant
DX: G51.0 Bell's palsy (principal); I10 Essential (primary) hypertension; E66.9 Obesity, unspecified; H53.8 Other visual disturbances; Z68.34 Body mass index [BMI] 34.0-34.9, adult; Z79.899 Other long term (current) drug therapy; Z79.82 Long term (current) use of aspirin; Z87.891 Personal history of nicotine dependence; R29.703 NIHSS score 3
CPT/HCPCS: 93005; 99281; 36415 ×2; 82553; 82962; 82550; 85025; 85610; 85730; 80053; 81001; 84484; 83036; 80061; 71045; 70450; 70496; 93010; 97161; 92610; 92523; G0378 ×2; J1650; J7512; J3490 ×2; J7030